=== PATIENT | male | born 1950 | race Caucasian/White ===

== ENCOUNTER 2017-04-13 23:56 | Emergency (ER) | payer OTHER ==
[2017-04-14 00:05] VITALS: RESP 20; TEMP 97.7
[2017-04-14 00:47] VITALS: BP 121/74; PULSE 70; O2SAT 96
[2017-04-14] MEDS ORDERED: SULFAMETHOXAZOLE/TRIMETHOPRI 800/160 MG ONE (00:53)
[2017-04-14] MEDS ORDERED: SULFAMETHOXAZOLE/TRIMETHOPRI 800/160 MG PO ONE (01:01)
== END 2017-04-14 01:09 | disposition home or self-care (01) | DRG 696 ==
LOC: ED 23:56
DX: R33.9 Retention of urine, unspecified (principal)
CPT/HCPCS: 51798; 99283